=== PATIENT | male | born 1980 | race Caucasian/White ===

== ENCOUNTER 2020-05-20 11:42 | Emergency (ER) | payer BC ==
[~2020-05-20] VITALS: Ht 177.8 cm; Wt 118.2 kg
[2020-05-20 11:47] VITALS: TEMP 98.3
[2020-05-20 13:02] VITALS: BP 151/89; PULSE 75
== END 2020-05-20 13:08 | disposition home or self-care (01) ==
LOC: COL.ER 11:42
DX: S10.93XA Contusion of unspecified part of neck, initial encounter (principal); W14.XXXA Fall from tree, initial encounter

== ENCOUNTER 2023-09-03 04:33 | Emergency (ER) | payer BC ==
[~2023-09-03] VITALS: Ht 180.3 cm; Wt 120.5 kg
[2023-09-03] MEDS ORDERED: NS 1,000 ML IV ONE (05:00)
[2023-09-03] MEDS ORDERED: Ketorolac 30 MG/ML VIAL IV ONE (05:00)
[2023-09-03] MEDS ORDERED: diphenhydrAMINE 50 MG/ML 1 ML VIAL IV ONE (05:00)
[2023-09-03 05:10] LABS: BASO % 0.4 % (0.0-2.0); EOS # 0.4 K/mm3 (0.0-0.7); EOS % 3.2 % (0.0-4.0); GRAN % 70.5 % (42.2-75.2); HEMATOCRIT 43.2 % (42.0-52.0); HEMOGLOBIN 14.9 g/dl (13.5-18.0); LYMPH # 2.1 K/mm3 (1.2-3.4); LYMPH % 18.2 % (20.0-51.0); MEAN CELL VOLUME 89 fl (80.0-100.0); MEAN CORPUSCULAR HEMOGLOBIN 31 pg (27-31); MEAN CORPUSCULAR HGB CONC 35 g/dl (33.0-37.0); MEAN PLATELET VOLUME 8.6 fl (7.4-10.4); MONO # 0.8 K/mm3 (0.1-0.6); MONO % 6.8 % (1.7-9.3); PLATELET COUNT 388 K/mm3 (130-400); RED BLOOD COUNT 4.88 M/mm3 (4.20-5.60); REDCELL DISTRIBUTION WIDTH-CV 12.6 % (11.5-14.5)
[2023-09-03 05:44] LABS: ALBUMIN 3.7 gm/dL (3.5-5.0); BILIRUBIN,TOTAL 0.2 mg/dL (0.2-1.2); C-REACTIVE PROTEIN 3.95 mg/dL (0.00-0.50); CALCIUM 9.4 mg/dL (8.4-10.2); CREATININE, serum 0.96 mg/dL (0.72-1.25); TOTAL PROTEIN 7.2 gm/dL (6.2-8.1)
[2023-09-03] MEDS ORDERED: Amoxicillin/Clavulanate K+ 875/125 MG TAB PO ONE (05:45)
[2023-09-03] MEDS ORDERED: AMOXICILLIN 8751 TAB PO (05:52)
[2023-09-03] MEDS ORDERED: dexAMETHasone 10 MG/ML VIAL IV ONE (06:30)
[2023-09-03 07:05] VITALS: BP 143/84; PULSE 75
== END 2023-09-03 07:05 | disposition home or self-care (01) ==
LOC: COL.ER 04:33
PROVIDERS: Emergency Medicine
DX: J32.1 Chronic frontal sinusitis (principal); J32.0 Chronic maxillary sinusitis; Z98.890 Other specified postprocedural states
CPT/HCPCS: J1100; J1200; J1885; J7030